=== PATIENT | female | born 1995 | race American Indian/Alaskan Native ===

== ENCOUNTER 2020-10-27 09:35 | Day surgery (SDC) | payer MEDICAID ==
[2020-10-27] MEDS ORDERED: BUPIVACAINE/PF (0.5%) 5 MG/1 ML 30 ML VIAL INFILTRATI ONE ×2 (10:48→12:45)
[2020-10-27] MEDS ORDERED: LIDOCAINE (1%) 10 MG/1 ML VIAL 20 ML MDV ONE (10:48)
[2020-10-27] MEDS ORDERED: LACTATED RINGERS 1,000 ML IV SCH (11:00)
[2020-10-27] MEDS ORDERED: MAGNESIUM OXIDE 400 MG TAB PO NR (11:43)
[2020-10-27] MEDS ORDERED: HYDROmorphone 1 MG/1 ML INJ IV PRN ×2 (11:43)
[2020-10-27] MEDS ORDERED: ONDANSETRON 4 MG/2 ML INJ IV PRN (11:43)
[2020-10-27] MEDS ORDERED: ACETAMINOPHEN 500 MG TAB PO NR (11:43)
--- NOTE | 2020-10-27 11:44 | Anesthesia Day of Surgery ---
Anesthesia Day of Surgery - Day of Surgery Patient Examined: Yes Patient H&P Reviewed: Yes Patient is NPO: Yes
--- NOTE | 2020-10-27 11:49 | Anesthesia Consultation ---
Anesthesia Consult and Med Hx Date of service: 10/27/20 - Airway Anesthetic Teeth Evaluation: Crowns ROM Head & Neck: Adequate Mental/Hyoid Distance: Adequate Mallampati Class: Class II Intubation Access Assessment: Good - Pre-Operative Health Status ASA Pre-Surgery Classification: ASA2 Proposed Anesthetic Plan: General - Pulmonary Hx Smoking: No Hx Respiratory Symptoms: No (Asymptomatic COVID in May) Hx Sleep Apnea: No (JUAN PRE SCREEN LOW RISK) - Cardiovascular System Hx Hypertension: No (DURING 2017- RESOLVED) - Central Nervous System Hx Neuromuscular Disorder: Yes (Fingers/thumb numbness) Hx Back Pain: Yes Hx Psychiatric Problems: No - Hematic Hx Anemia: Yes Hx Sickle Cell Disease: No - Other Systems Hx Alcohol Use: No Hx Substance Use: No Hx Cancer: No
[2020-10-27] MEDS ORDERED: ceFAZolin/STERILE WATER 2 GM/20 ML SYRINGE IV NR (11:53)
[2020-10-27] MEDS ORDERED: MIDAZOLAM 2 MG/2 ML INJ IV NR (12:00)
[2020-10-27] MEDS ORDERED: CELECOXIB 200 MG CAP PO NR (12:00)
[2020-10-27] MEDS ORDERED: LIDOCAINE MPF (2%) 20 MG/1 ML VIAL 5 ML ONE (12:10)
[2020-10-27] MEDS ORDERED: fentaNYL 100 MCG/2 ML INJ ONE (12:11)
[2020-10-27] MEDS ORDERED: propofoL 200 MG/20 ML VIAL IV ONE (12:11)
[2020-10-27] MEDS ORDERED: dexAMETHasone 20 MG/5 ML VIAL ONE (12:35)
[2020-10-27] MEDS ORDERED: ONDANSETRON 4 MG/2 ML INJ ONE (12:35)
[2020-10-27] MEDS ORDERED: ROCURONIUM 50 MG/5 ML INJ IV ONE (12:35)
[2020-10-27] MEDS ORDERED: GLYCOPYRROLATE 0.4 MG/2 ML INJ ONE ×2 (12:37→13:39)
[2020-10-27] MEDS ORDERED: NEOSTIGMINE 10MG/10 ML INJ MDV ONE (12:37)
[2020-10-27] MEDS ORDERED: LIDOCAINE (1%) 10 MG/1 ML VIAL 20 ML MDV INFILTRATI ONE (12:45)
[2020-10-27] MEDS ORDERED: SODIUM CHLORIDE 0.9% IRR 1,500 ML BOTTLE IR ONE (12:45)
[2020-10-27] MEDS ORDERED: SUCCINYLCHOLINE CHLORIDE 200 MG/10 ML INJ MDV ONE (12:47)
[2020-10-27] MEDS ORDERED: MINERAL OIL/PETROLATUM, WHITE OPHTH OINT 3.5 GM ONE (12:47)
[2020-10-27] MEDS ORDERED: KETOROLAC 30 MG/1 ML INJ ONE (13:39)
--- NOTE | 2020-10-27 13:45 | Short Stay Summary ---
Short Stay Documentation Date of service: 10/27/20 - History Principal diagnosis: soft tissue mass right posterior shoulder and left arm H&P: obtained from office - Allergies and Medications Current Medications: Allergies No Known Allergies Allergy (Verified 10/21/20 16:33) Home Medications Medication Instructions Recorded Confirmed Last Taken Type No Known Home Medications [No 05/06/20 10/21/20 Unknown History Reported Home Medications] Active Medications Acetaminophen (Acetaminophen 500 Mg Tab) 1,000 mg PO ONCE NR Stop: 10/27/20 14:00 Last Admin: 10/27/20 11:59 Dose: 1,000 mg Documented by: Cefazolin Sodium (Cefazolin/Sterile Water 2 Gm/20 Ml Syringe) 2 gm IV PREOP NR Stop: 10/27/20 19:00 Celecoxib (Celecoxib 200 Mg Cap) 400 mg PO PREOP NR Stop: 10/27/20 15:00 Last Admin: 10/27/20 11:59 Dose: 400 mg Documented by: Hydromorphone HCl (Hydromorphone 1 Mg/1 Ml Inj) 0.25 mg IV Q10MIN PRN PRN Reason: Pain, Moderate (4-6) Stop: 10/27/20 23:00 Hydromorphone HCl (Hydromorphone 1 Mg/1 Ml Inj) 0.5 mg IV Q10MIN PRN PRN Reason: Pain , Severe (7-10) Stop: 10/27/20 23:00 Lactated Ringer's (Lactated Ringers) 1,000 mls @ 100 mls/hr IV DIRECT DELMI Last Admin: 10/27/20 11:49 Dose: 100 mls/hr Documented by: Magnesium Oxide (Magnesium Oxide 400 Mg Tab) 400 mg PO ONCE NR Stop: 10/27/20 15:00 Last Admin: 10/27/20 11:59 Dose: 400 mg Documented by: Midazolam HCl (Midazolam 2 Mg/2 Ml Inj) 2 mg IV PREOP NR Stop: 10/27/20 23:59 Last Admin: 10/27/20 12:01 Dose: 2 mg Documented by: Ondansetron HCl (Ondansetron 4 Mg/2 Ml Inj) 4 mg IV ONCE PRN PRN Reason: Nausea And Vomiting Stop: 10/27/20 16:00 - Brief post op/procedure progress note Date of procedure: 09/21/21 Pre-op diagnosis: soft tissue mass right posterior shoulder and left arm Post-op diagnosis: same Procedure: excision soft tissue mass right posterior shoulder excision soft tissue mass left arm Anesthesia: GETA, local Findings: 1. 13cm lobulated, multiseptated fatty mass of right posterior shoulder 2. 2.5 cm fatty mass of left arm Surgeon: ALESSIO HILL Estimated blood loss: minimal Pathology: list (1. soft tissue mass right shoulder, 2. soft tissue mass left arm) Specimen disposition: to lab Condition: stable - Hospital course Hospital course: Pt observed in PACU and discharged to home in stable condition when criteria met - Disposition Condition at discharge: Good Disposition: 01 HOME / SELF CARE / HOMELESS Short Stay Discharge Plan Activity: no restrictions Wound: open to air, per your surgeon's advice Follow up with: CEDRICK PULIDO NP-C [Primary Care Provider] - 7 Days ALESSIO HILL DO [Staff Physician] - 14 Days Prescriptions: HYDROcodone/APAP 5-325 [[place] 5/325] 1 each PO Q6HR PRN #10 tablet PRN Reason: Pain , Severe (7-10)
[2020-10-27 14:53] VITALS: BP 111/69
--- NOTE | 2020-10-27 17:57 | Post Anesthesia Evaluation ---
- Post Anesthesia Evaluation Patient Participated: Yes Airway Patent: Yes Stable Respiratory Function: Yes Nausea/Vomiting: No Temp > 96.8F: Yes Pain Manageable: Yes Adequeate Hydration: Yes Anesthesia Complications: No Block Receding Appropriately: Not Applicable Patient on Ventilator: No
--- NOTE | 2020-10-30 08:16 | Operative Report ---
Operative Report Operative Report: Date of procedure: 10/27/20 Pre-op diagnosis: soft tissue mass right posterior shoulder and left arm Post-op diagnosis: same Procedure: excision soft tissue mass right posterior shoulder excision soft tissue mass left arm Anesthesia: GETA, local Findings: 1. 13cm lobulated, multiseptated fatty mass of right posterior shoulder 2. 2.5 cm fatty mass of left arm Surgeon: ALESSIO HILL Estimated blood loss: minimal Pathology: list (1. soft tissue mass right shoulder, 2. soft tissue mass left arm) Specimen disposition: to lab Condition: stable Hospital course: Pt observed in PACU and discharged to home in stable condition when criteria met HPI and indication: 25 yo F with soft tissue mass of right posterior shoulder and left arm who presented to surgery clinic to be evaluated for excision. All risks, benefits, alternatives to surgery were discussed and questions answered. Consent obtained. Procedure in detail: Patient identified in preoperative area and areas marked. She was taken to the operating room. Anesthesia was induced on the patient stretcher and she was then transferred to the operating room table in prone position with all bony prominences padded appropriately. The right upper back was prepped and draped in usual sterile fashion a timeout performed. Local anesthetic was infiltrated into the skin at the intended incision site. A 6 cm transverse incision was made over the area of the mass using a 15 blade. Dissection was carried out through the skin and subcutaneous tissue using electrocautery until the mass was identified. The mass appeared fatty and lobulated with multiple septations within a thick capsule. The mass was meticulously dissected free from the capsule using blunt dissection and electrocautery. Once the entire mass was freed it was removed from the specimen and measured at 13 cm. The wound was then irrigated and hemostasis very carefully ensured. The wound was closed in a layered fashion. The deep layer was closed with interrupted 3-0 Vicryl stitches. The skin was approximated using 4-0 Monocryl subcuticular stitches and skin glue. I then turned my attention to the left arm soft tissue mass. The left arm was positioned appropriately and the area prepped and draped in the usual sterile fashion. Local anesthetic was infiltrated into the skin at the intended incision site. An incision was made over the mass using a 15 blade and dis section carried down through the skin and subcutaneous tissues electrocautery till the mass was encountered. Mass was circumferentially dissected free from the surrounding tissue using a hemostat, blunt dissection. The mass appeared fatty consistent with a lipoma. This was removed from the wound and measured at 2.5 cm. The wound was then checked for hemostasis which was carefully ensured. The wound was closed in a layered fashion with a deep layer closed with 3-0 Vicryl interrupted stitch. The skin was approximated using 4-0 Monocryl subcuticular running stitch and skin glue. At the end of the case, all sponge, instrument, sharp counts were correct x2. The patient was transferred to the stretcher in supine position, extubated, and taken to PACU in stable condition
== END 2020-10-27 09:36 | disposition home or self-care (01) ==
LOC: OR 09:35
PROVIDERS: ATTEND Surgery
DX: D17.1 Benign lipomatous neoplasm of skin and subcutaneous tissue of trunk (principal); D17.22 Benign lipomatous neoplasm of skin and subcutaneous tissue of left arm; Z79.899 Other long term (current) drug therapy; Z98.890 Other specified postprocedural states; Z20.822 Contact with and (suspected) exposure to COVID-19
CPT/HCPCS: 23071; 24075; 81025; 88304; J0330; J0690; J1100; J1885; J2250; J2405; J2704; J2710; J3010; J7120; U0003; 88307